=== PATIENT | male | born 1940 | race Caucasian/White ===

== ENCOUNTER 2016-07-22 11:47 | Emergency (ER) | payer MEDICARE, BC ==
[~2016-07-22] VITALS: Ht 167.6 cm; Wt 78.0 kg
[~2016-07-22 11:47] MED LIST: ALEV220C PO; CALTCHW4 CHEW; CETI10 PO; FINA5TAB2 PO; KETO0.02 EACH EYE; MIRA50TA PO; MOBI15TA PO; MULTTAB67 PO; OCEA0.653 EACH NARE; OLOD1AER2 PO; OMEP20CA2 PO; PSEU30TA2 PO; PYRI60 PO; SODI1.1P DENTAL; TERA10CA3 PO; TRAM-492 PO; VENTAER INH; VITA10004 PO; [UNRECOGNIZED DRUG - CODE] TOPICAL
[2016-07-22 11:48] VITALS: BP 107/68; PULSE 90; RESP 14; TEMP 97.7; O2SAT 95
--- NOTE | 2016-07-22 11:55 | PD ---
Physical Exam Time Seen by Provider: 11:51 Narrative 76yo M c/o feeling tired and not being able today awake this morning. Dx with afib on Tuesday. Denies chest pain, heart palpitations. Reports SOB. Says BP is low and don't know if eds were taken appropriately this morning. Started in 2 new medications yesterday. Patient seen in triage. VS reviewed. Patient awaiting bed placement. Data Data Last Documented VS Vital Signs Date Time Temp Pulse Resp B/P Pulse Ox O2 Delivery O2 Flow Rate FiO2 07/22/16 11:48 97.7 90 14 107/68 95 MDM Supervised Visit with SIENNA: Laurie Rios Jul 22, 2016 11:55
[2016-07-22 12:05] VITALS: PULSE 80; RESP 18; O2SAT 96
[2016-07-22 12:15] VITALS: BP 135/71; PULSE 102; RESP 15; O2SAT 96
--- NOTE | 2016-07-22 12:37 | PD ---
HPI Chief Complaint: Cardiac Complaint Time Seen by Provider: 12:37 Travel History International Travel<30 days: No Contact w/Intl Traveler<30days: No Traveled to known affect area: No History of Present Illness HPI 76-year-old male with a history of myasthenia gravis, hypertension, asthma, BPH , newly diagnosed atrial fibrillation presents to the emergency department for evaluation of lightheadedness and headache that began this morning. The patient states that 2 days ago he went to [facility] for a routine laser prostate surgery when they discovered he had atrial fibrillation. States that he was admitted to [facility] for 2 days and one night, discharged last night. States that they were treating his atrial fibrillation. He was discharged with extended release diltiazem 120 mg once daily and eliquis. States that he last took this medication yesterday morning. States that this morning he fell asleep and forgot to take his medication. States that since he woke up this morning he's had intermittent lightheadedness with a mild headache. He denies any chest pain, shortness of breath, nausea, vomiting , diarrhea, abdominal pain, numbness or tingling, weakness. PCP is Dr. Booth. Director External Communications is Dr. Westfall. No other complaints. PFSH Past Medical History Hx Anticoagulant Therapy: Yes Arthritis: Yes Asthma: Yes Atrial Fibrillation: Yes Heart Rhythm Problems: Yes Cardiovascular Problems: Yes COPD: Yes Genitourinary: Yes (prostate ,BPH) Inguinal Hernia: Yes Medical other: Yes Neurologic: Yes (myasthesia gravis) Respiratory: Yes (emphysemia) Tetanus Vaccination: < 5 Years Influenza Vaccination: Yes Past Surgical History Cholecystectomy: Yes Joint Replacement: Yes (rt knee, rt shoulder) Thoracic Surgery: Yes (C2-C6 neck fusion) Social History Alcohol Use: No Tobacco Use: No (quit 33 yrs ago) Substance Use: No Allergies-Medications (Allergen,Severity, Reaction): Coded Allergies: Terramycin (Verified Allergy, Severe, Hives, 07/22/16) Reported Meds & Prescriptions Reported Meds & Active Scripts Active Reported Vitamin D3 (Cholecalciferol) 5,000 Unit Cap 5,000 Units PO DAILY [Vitafusion Calcium] 2 Cap PO DAILY Tylenol (Acetaminophen) 325 Mg Tab 650 Mg PO Q6H PRN Metamucil (Psyllium) 520 Mg Cap 520 Mg PO DAILY Triamcinolone Topical (Triamcinolone Acetonide) 0.1% Cream 1 Applic TOPICAL BID Tamsulosin (Tamsulosin HCl) 0.4 Mg Cap 0.4 Mg PO HS Prednisone 10 Mg Tab 30 Mg PO DAILY Losartan (Losartan Potassium) 100 Mg Tab 50 Mg PO DAILY Imipramine HCL (Imipramine HCl) 25 Mg Tab 25 Mg PO HS Cardizem CD 24 HR (Diltiazem CD 24 HR) 120 Mg Caper 120 Mg PO DAILY Eliquis (Apixaban) 5 Mg Tab 5 Mg PO BID Anoro Ellipta Inh (Umeclidinium/Vilanterol) 62.5-25 Mcg/Act Aero 1 Puff INH MOWEFR Inhale 1 puff daily on Tuesday,Tuesday and Tuesday Multi Vitamin and Mineral (Multiple Vitamins W/ Minerals) 1 Tab Tab 1 Tab PO DAILY B12 (Cyanocobalamin) 1,000 Mcg Tab 1,000 Mcg PO MOWEFR Take 1 tablet (1,000mcg) daily on Tuesday,Tuesday and Tuesday The Treatment Formula 3 (Tolnaftate) 1 % Lisa 1 Applic TOPICAL DAILY Pyridostigmine (Pyridostigmine [place]) 60 Mg Tab 120 Mg PO QID Omeprazole 20 Mg Cap 20 Mg PO 1 TO 2 TIMES A DAY Myrbetriq (Mirabegron) 50 Mg Tab 100 Mg PO HS Finasteride 5 Mg Tab 5 Mg PO HS Do not crush. Cetirizine (Cetirizine HCl) 10 Mg Tab 10 Mg PO DAILY Ventolin Hfa 18 GM Inh (Albuterol Sulfate) 90 Mcg/Act Aer 1 Puff INH QID PRN Review of Systems Except as stated in HPI: all other systems reviewed are Neg Physical Exam Narrative GENERAL: Well-nourished and well-developed pleasant male patient in no acute distress who is nontoxic appearing. SKIN: Warm and dry. HEAD: Normocephalic and atraumatic. EYES: No injection, drainage, or hyphema noted. PERRLA. EOMI. ENT: No nasal drainage noted. Oropharynx is clear. NECK: Supple and the trachea is midline. CARDIOVASCULAR: Regular rate and rhythm. RESPIRATORY: Breath sounds are equal bilaterally with no accessory muscle use, wheezing, rhonchi, or crackles. GASTROINTESTINAL: Abdomen is soft, non-tender, and nondistended. MUSCULOSKELETAL: No obvious deformities, swelling, cyanosis, or ecchymosis is present throughout the upper and lower extremities. Patient has full range of motion without any signs of neurovascular compromise. NEUROLOGICAL: Awake, alert, and oriented. Normal speech and gait. Cranial nerves are grossly intact. Data Data Last Documented VS Vital Signs Date Time Temp Pulse Resp B/P Pulse Ox O2 Delivery O2 Flow Rate FiO2 07/22/16 14:04 110 07/22/16 14:04 16 98 Nasal Cannula 2 07/22/16 14:00 130/78 07/22/16 11:48 97.7 Orders Ecg Monitoring (07/22/16 12:38) Blood Pressure (07/22/16 12:38) Iv Access Insert/Monitor (07/22/16 12:38) Oximetry (07/22/16 12:38) Vital Signs (07/22/16 12:38) Sodium Chloride 0.9% Flush (Ns Flush) (07/22/16 12:45) Diltiazem Inj (Cardizem Inj) (07/22/16 12:45) Electrocardiogram (07/22/16 12:05) MDM Medical Decision Making Medical Screen Exam Complete: Yes Emergency Medical Condition: Yes Differential Diagnosis Atrial fibrillation versus AF w/ RVR versus medication noncompliance Narrative Course 76-year-old male presents to the emergency department for evaluation of lightheadedness and mild headache that began this morning. Patient is afebrile , vital signs are stable. He was initially noted to have a heart rate of 90 bpm , when I entered the room and is now 112 bpm. EKG shows atrial fibrillation with a ventricular rate of 106 bpm. The patient and his daughter states that he was discharged from [facility] yesterday with oral diltiazem. States he fell asleep this morning and forgot to take his diltiazem this morning. The patient has no chest pain and no other complaints. He has no focal neurologic deficits. He is newly anticoagulated on Eliquis, no black or bloody stools. I reviewed the medical records from the patient's hospitalization at [facility] the past 2 days which shows he was given a diltiazem bolus and drip and converted back to normal sinus rhythm, and was discharged home. All labs and imaging were unremarkable. I don't see any indication to repeat labs since he had them performed yesterday and were normal. I discussed the case with my attending physician Dr. Grande who agrees with administration of Diltiazem 20 mg IV bolus now. The patient's heart rate has come down appropriately to between 80 and 100 bpm. His blood pressure has remained stable and he is without complaint. My attending physician recommends we give the patient his oral diltiazem extended release tablet now and he can take it again tomorrow as scheduled. I discussed with the patient and family that should he develop any worsening of symptoms that they should return immediately to the emergency department. Patient and family verbalized understanding and are in agreement and comfortable with this plan. Diagnosis Primary Impression: Paroxysmal atrial fibrillation with rapid ventricular response Referrals: Primary Care Physician Patient Instructions: General Instructions Additional Instructions: Please remember to take your Diltiazem and Eliquis tomorrow morning. Follow-up with your Primary Care Physician in 2-3 days for recheck. See Dr. Westfall as scheduled. Return to the ED for any acute worsening of symptoms. Med/Other Pt SpecificInfo: No Change to Meds Disposition: 01 DISCHARGE HOME Condition: Stable Laurie Franklin Jul 22, 2016 12:37
[2016-07-22] MEDS ORDERED: CYAN1TAB24 PO (12:40)
[2016-07-22] MEDS ORDERED: DILTIAZEM HCL 25 MG/5 ML VIAL IV ONE (12:45)
[2016-07-22] MEDS ORDERED: SODIUM CHLORIDE 0.9% FLUSH 10 ML FLUSH IVF PRN (12:45)
[2016-07-22] MEDS ORDERED: PRED10 PO (13:02)
[2016-07-22] MEDS ORDERED: UMEC1AER INH (13:02)
[2016-07-22] MEDS ORDERED: MULT-142 PO (13:02)
[2016-07-22] MEDS ORDERED: LOSA100T PO (13:02)
[2016-07-22] MEDS ORDERED: APIX5TAB PO (13:02)
[2016-07-22] MEDS ORDERED: CARD120C4 PO (13:02)
[2016-07-22] MEDS ORDERED: IMIP25TA PO (13:02)
[2016-07-22] MEDS ORDERED: CHOL5000 PO (13:14)
[2016-07-22] MEDS ORDERED: TRIA.1%T TOPICAL (13:14)
[2016-07-22] MEDS ORDERED: TYLE325T PO (13:14)
[2016-07-22] MEDS ORDERED: VITAFUSION CALCIUM PO (13:14)
[2016-07-22] MEDS ORDERED: META0.52 PO (13:14)
[2016-07-22] MEDS ORDERED: TAMS0.4C4 PO (13:14)
[2016-07-22 14:00] VITALS: BP 130/78; PULSE 103; RESP 13; O2SAT 98
[2016-07-22 14:04] VITALS: PULSE 110; RESP 16; O2SAT 98
[2016-07-22 15:26] VITALS: BP 127/84
--- NOTE | 2016-07-23 12:38 | EKG ---
Date Performed: 07/22/2016 Time Performed: 12:05:37 PTAGE: 76 years EKG: ATRIAL FIBRILLATION WITH RAPID VENTRICULAR RESPONSE NONSPECIFIC T-WAVE ABNORMALITY ABNORMAL RHYTHM ECG Clinical correlation is recommended. NO PREVIOUS TRACING DOCTOR: Jan Burris Interpretating Date/Time 07/23/2016 12:38:02
== END 2016-07-22 15:49 | disposition home or self-care (01) ==
LOC: NEPE 11:47
DX: I48.0 Paroxysmal atrial fibrillation (principal); R42 Dizziness and giddiness; R51 Headache; R94.31 Abnormal electrocardiogram [ECG] [EKG]; Z79.01 Long term (current) use of anticoagulants; Z87.39 Personal history of other diseases of the musculoskeletal system and connective tissue; Z87.09 Personal history of other diseases of the respiratory system; Z86.79 Personal history of other diseases of the circulatory system; Z87.438 Personal history of other diseases of male genital organs; Z86.69 Personal history of other diseases of the nervous system and sense organs
CPT/HCPCS: 93005; 96374